=== PATIENT | female | born 1970 | race African-American/Black ===

== ENCOUNTER 2021-09-03 14:51 | Emergency (ER) | payer SELFPAY ==
[~2021-09-03] VITALS: Ht 165.1 cm; Wt 113.6 kg
[2021-09-03] MEDS ORDERED: TRAMADOL HCL 50 MG TAB PO NR (15:45)
[2021-09-03] MEDS ORDERED: TRAMADOL HCL 50 MG TAB ONE (16:07)
[2021-09-03] MEDS ORDERED: AZITHROMYCIN250 MG PO (16:28)
[2021-09-03] MEDS ORDERED: VENTOLIN HFA18 GM INH (16:28)
[2021-09-03] MEDS ORDERED: PREDNISONE20 MG PO (16:28)
== END 2021-09-03 16:59 | disposition home or self-care (01) ==
LOC: FSED 14:59
DX: B34.9 Viral infection, unspecified (principal); R05.9 Cough, unspecified; R53.81 Other malaise; I10 Essential (primary) hypertension
CPT/HCPCS: 36415; 71045; 81003; 81025; 82948; 87400; 99283